=== PATIENT | female | born 1955 | race Caucasian/White ===

== ENCOUNTER 2019-08-01 08:29 | Inpatient (IN) ==
[2019-08-01] MEDS ORDERED: LACTATED RINGERS 1,000 ML IV ONE (08:44)
[2019-08-01] MEDS ORDERED: ONDANSETRON 4 MG/2 ML VIAL IV ONE (08:44)
[2019-08-01] MEDS ORDERED: ACETAMINOPHEN 325 MG TABLET PO ONE (09:00)
[2019-08-01] MEDS ORDERED: 0.9 % SODIUM CHLORIDE 1,000 ML IV ONE ×2 (09:27→10:48)
[2019-08-01 09:54] LABS: Basophils # (Auto) 0.03 K/mcL (0.00-0.30); Basophils % (Auto) 0.4 % (0.0-2.0); Eosinophils # (Auto) 0.01 K/mcL (0.00-0.70); Eosinophils % (Auto) 0.1 % (0.0-7.0); Granulocytes % (Auto) 86.4 % (38.0-78.0); Hemoglobin 10.8 g/dL (11.2-15.7); Lymphocytes # (Auto) 0.42 K/mcL (1.50-4.80); Lymphocytes % (Auto) 5.3 % (15.5-49.0); Mean Cell Volume 101.2 fL (80.0-100.0); Mean Corpuscular HGB Conc 32.7 g/dL (31.0-36.0); Monocytes # (Auto) 0.62 K/mcL (0.10-0.90); Monocytes % (Auto) 7.8 % (1.0-12.0); Platelet Count 317 K/mcL (140-440); RBC 3.26 M/mcL (3.59-5.38); Red Cell Distribution Width 12.6 % (11.5-14.5)
[2019-08-01 10:18] LABS: ALT/SGPT 12 U/l (0-40); AST/SGOT 21 U/l (0-37); Albumin 4.3 gm/dL (3.2-5.2); Albumin/Globulin Ratio 1.4 (1.0-2.3); Alkaline Phosphatase 67 U/L (39-117); Bilirubin,Total 0.3 mg/dL (0.0-1.0); Blood Urea Nitrogen 37 mg/dl (8-23); Calcium 9.7 mg/dl (8.6-10.4); Carbon Dioxide 18 mmol/L (22-30); Chloride 95 mmol/L (96-108); Glomerular Filtration Rate 16; Glucose 181 mg/dL (70-105)
--- NOTE | 2019-08-01 10:24 | Emergency Department Note ---
Nausea/Vomiting/Diarrhea HPI - General Chief complaint: Nausea/Vomiting/Diarrhea Stated complaint: "I think I have the flu" Time Seen by Provider: 08/01/19 08:43 Source: patient Mode of arrival: ambulatory Limitations: no limitations - History of Present Illness HPI Narrative: 63-year-old female with a 3-day history of nausea vomiting diarrhea. Concerned about coughing flu type symptoms. She is breathing okay. She has chronic kidney disease stage IV-sees nephrology here at [facility]. Not able to hold anything down except water. Febrile. - Related Data Home Medications Medication Instructions Recorded Confirmed aspirin 81 mg chewable tablet 81 mg PO QDAY 11/21/15 07/11/19 omeprazole 20 mg capsule,delayed 20 mg PO QDAY cap 11/21/15 07/11/19 release Previous Rx's Medication Instructions Recorded cholecalciferol (vitamin D3) 50 2,000 unit PO QDAY #90 cap 12/23/18 mcg (2,000 unit) capsule fenofibrate nanocrystallized 48 mg 48 mg PO QDAY #90 tab 06/21/19 tablet paroxetine HCl 40 mg tablet 40 mg PO QDAY #90 tab 06/21/19 lisinopril 5 mg tablet 5 mg PO QDAY #90 tab 07/11/19 sodium bicarbonate 650 mg tablet 650 mg PO BID #180 tab 07/11/19 Allergies Allergy/AdvReac Type Severity Reaction Status Date / Time hydrocodone Allergy Unknown Unknown Verified 07/11/19 14:46 oxycodone [Oxycodone] Allergy Unknown Unknown Verified 07/11/19 14:46 etodolac [From Lodine] AdvReac Severe kidney Verified 07/11/19 14:46 disease Review of Systems All systems ED: reviewed and negative except as stated. Past Medical History - Past Medical History Attestation: Yes: The following information was validated with the patient. PMF Narrative: Family History (Last Reviewed 06/21/19 @ 13:11 by SINDI Branch) Mother Heart disease Stroke Diabetes Kidney disease High blood pressure Father Heart disease High blood pressure Heart attack Grandmother Stroke Grandmother Stroke Grandfather Heart disease Sister Heart disease Diabetes Medical History (Last Reviewed 06/21/19 @ 13:11 by SINDI Branch) Chronic rhinitis (Chronic) Perceived hearing changes (Chronic) Constipation (Chronic) Fatigue (Chronic) Depression with anxiety (Chronic) Pre-diabetes (Chronic) Right knee pain (Chronic) Hypertension (Chronic) Postmenopausal atrophic vaginitis (Chronic) GERD (gastroesophageal reflux disease) (Chronic ~2000) Hyperlipidemia (Chronic) Low back pain syndrome (Chronic) Vitamin D deficiency (Chronic) Hemorrhoids (Chronic) Abnormal results of kidney function studies (Resolved) Bilateral flank pain (Resolved) Depression (Resolved) Diabetes mellitus (Resolved) Elevated BUN (Resolved) Elevated cholesterol (Resolved) Elevated serum creatinine (Resolved) Fatigue (Resolved) Hormone replacement therapy (HRT) (Resolved) Hyperkalemia, diminished renal excretion (Resolved) Osteoarthritis (Resolved) Past Surgical History (Last Reviewed 06/21/19 @ 13:11 by SINDI Branch) History of back surgery (Chronic) History of colonoscopy (Chronic 08/31/13) History of hysterectomy (Chronic) History of shoulder surgery (Chronic) Hx of removal of ovary (Chronic) No pertinent past surgical history (Inactive) Medical history: Reports: renal disease Psychiatric history: Reports: no psych history T[employer]IST history: Reports: non-contributory Surgical history ED: Reports: hysterectomy. Denies: cholecystectomy - Social History smoking status: Never smoker Physical Exam No acute distress resting able answer questions appropriately. Normocephalic atraumatic. Conjunctive are clear sclerae white nonicteric. No nasal discharge or congestion. Oropharynx is pink and moist. Neck is supple without lymphadenopathy or thyromegaly. Heart is regular rate and rhythm no murmur appreciated. Lungs are clear to auscultation bilaterally without wheezes rales rhonchi or respiratory distress. Abdomen is somewhat bloated but not tympanic. Mildly diffusely tender. No peritoneal signs or guarding. No pedal edema. Limitations: no limitations Course Vital Signs Temperature 101.5 F H 08/01/19 08:29 Pulse Rate 116 H 08/01/19 08:29 Respiratory Rate 20 08/01/19 08:29 Blood Pressure 124/62 08/01/19 08:29 Pulse Oximetry (%) 97 08/01/19 08:29 Temperature 100.8 F H 08/01/19 10:05 Pulse Rate 70 08/01/19 11:31 Respiratory Rate 18 08/01/19 10:00 Blood Pressure 115/58 08/01/19 11:31 Pulse Oximetry (%) 92 08/01/19 11:31 Nausea/Vomiting/Diarrhea - Lab Data Lab results reviewed: Yes I reviewed the patient's lab results. Result diagrams: 08/01/19 09:07 08/01/19 09:07 Lab Results 08/01/19 08/01/19 08/01/19 Range/Units 09:07 09:07 09:07 WBC 8.0 (4.50-11.00) K/mcL RBC 3.26 L (3.59-5.38) M/mcL Hgb 10.8 L (11.2-15.7) g/dL Hct 33.0 L (34.1-44.9) % MCV 101.2 H (80.0-100.0) fL MCH 33.1 (26.0-34.0) pg MCHC 32.7 (31.0-36.0) g/dL RDW 12.6 (11.5-14.5) % Plt Count 317 (140-440) K/mcL MPV 11.0 H (7.4-10.4) fL Gran % 86.4 H (38.0-78.0) % Lymph % (Auto) 5.3 L (15.5-49.0) % [place] % (Auto) 7.8 (1.0-12.0) % Eos % (Auto) 0.1 (0.0-7.0) % Baso % (Auto) 0.4 (0.0-2.0) % Gran # 6.89 (1.80-8.00) K/mcL Lymph # (Auto) 0.42 L (1.50-4.80) K/mcL [place]iken # (Auto) 0.62 (0.10-0.90) K/mcL Eos # (Auto) 0.01 (0.00-0.70) K/mcL Baso # (Auto) 0.03 (0.00-0.30) K/mcL VBG Lactic Acid 2.9 H (0.5-2.0) mmol/L Sodium 131 L (133-145) mmol/L Potassium 4.1 (3.3-5.1) mmol/L Chloride 95 L (96-108) mmol/L Carbon Dioxide 18 L (22-30) mmol/L Anion Gap 18.0 H (8-16) BUN 37 H (8-23) mg/dl Creatinine 3.0 H (0.6-1.1) mg/dl GFR Calculation 16 Glucose 181 H (70-105) mg/dL Calcium 9.7 (8.6-10.4) mg/dl Magnesium (1.6-2.5) mg/dL Total Bilirubin 0.3 (0.0-1.0) mg/dL AST 21 (0-37) U/l ALT 12 (0-40) U/l Alkaline Phosphatase 67 (39-117) U/L Total Protein 7.3 (5.9-8.4) gm/dL Albumin 4.3 (3.2-5.2) gm/dL Globulin 3.0 (2.2-3.7) gm/dL Albumin/Globulin Ratio 1.4 (1.0-2.3) /02/11 Range/Units 09:07 WBC (4.50-11.00) K/mcL RBC (3.59-5.38) M/mcL Hgb (11.2-15.7) g/dL Hct (34.1-44.9) % MCV (80.0-100.0) fL MCH (26.0-34.0) pg MCHC (31.0-36.0) g/dL RDW (11.5-14.5) % Plt Count (140-440) K/mcL MPV (7.4-10.4) fL Gran % (38.0-78.0) % Lymph % (Auto) (15.5-49.0) % [place]iken % (Auto) (1.0-12.0) % Eos % (Auto) (0.0-7.0) % Baso % (Auto) (0.0-2.0) % Gran # (1.80-8.00) K/mcL Lymph # (Auto) (1.50-4.80) K/mcL Aiken # (Auto) (0.10-0.90) K/mcL Eos # (Auto) (0.00-0.70) K/mcL Baso # (Auto) (0.00-0.30) K/mcL VBG Lactic Acid (0.5-2.0) mmol/L Sodium (133-145) mmol/L Potassium (3.3-5.1) mmol/L Chloride (96-108) mmol/L Carbon Dioxide (22-30) mmol/L Anion Gap (8-16) BUN (8-23) mg/dl Creatinine (0.6-1.1) mg/dl GFR Calculation Glucose (70-105) mg/dL Calcium (8.6-10.4) mg/dl Magnesium 1.8 (1.6-2.5) mg/dL Total Bilirubin (0.0-1.0) mg/dL AST (0-37) U/l ALT (0-40) U/l Alkaline Phosphatase (39-117) U/L Total Protein (5.9-8.4) gm/dL Albumin (3.2-5.2) gm/dL Globulin (2.2-3.7) gm/dL Albumin/Globulin Ratio (1.0-2.3) - Radiology Data Radiology results reviewed: Yes I reviewed the patient's radiology results. X-ray abdomen 2 views shows mild ileus and gastric decompression secondary to nausea and vomiting Disposition Pt seen by CASH CLERK/PA only: No Clinical Impression: Dehydration, Gastroenteritis, Ileus Acute on chronic kidney failure Qualifiers: Acute renal failure type: unspecified Chronic kidney disease stage: stage 4 (severe) Qualified Code(s): N17.9 - Acute kidney failure, unspecified Summary: Concern for gastroenteritis versus small bowel obstruction versus other intra- abdominal pathology. Initially got laboratory started IV fluids and Zofran. Creatinine has been slowly trending up and went from 2.5-3.0. Started second liter of fluid. Will check an abdominal x-ray series first Alfredo x-ray series shows mild ileus. Discussed results with the patient and with hospitalist, Dr. Chavez. Patient will be admitted for rehydration and further care Disposition: Xfer As Inpt ([facility]) Condition: Fair Referrals: Prudence Vilchis ARNP [Primary Care Provider] -
--- NOTE | 2019-08-01 11:38 | XRay Report ---
CLINICAL INFORMATION: nausea vomting diarrhea COMPARISON: 2017. FINDINGS: There are scattered air-fluid levels within decompressed stomach, small bowel and large bowel. No free air, soft tissue mass or organomegaly. No pathologic calcification. IMPRESSION: Decompressed GI tract with mild ileus Interpreted and Authenticated by: Frantz Delcid 08/01/19
[2019-08-01] MEDS ORDERED: ACETAMINOPHEN 325 MG TABLET PO PRN (12:42)
[2019-08-01] MEDS ORDERED: ONDANSETRON 4 MG/2 ML VIAL IV PRN ×2 (12:42→14:51)
[2019-08-01] MEDS ORDERED: traMADol 50 MG TABLET PO PRN (12:51)
[2019-08-01] MEDS ORDERED: 0.9 % SODIUM CHLORIDE 1,000 ML IV SCH (13:00)
--- NOTE | 2019-08-01 13:20 | Internal Med History&Physical ---
Medical - H&P: [facility] Patient information: Note initiated : 08/01/19 at 12:55 pm Service Date, if different from initiated Date: [] Patient: Caty King a 63 y/o F admitted on for "I think I have the flu". Chief Complaint: [Nausea vomiting diarrhea for 3 days] History of present illness: Ms. King is a 63 year old F with a history of chronic kidney disease and a high blood pressure who presented to the ER due to nausea vomiting and diarrhea for 3 days. As per patient patient started to have nausea, vomiting and diarrhea associated with mild intermittent epigastric abdominal pain 3 days ago. She has watery bowel movements x 4-5 a day. Abdominal pain is very mild something like stomach upset. Otherwise she denies headache, dizziness, chest pain, shortness of breath, fever, chills, or dysuria. In the ER, she was given 2 L IV fluid. When I saw this patient in the ER, other than the symptoms mentioned above, she was fine. Denied recent travel or sick contact. All systems: reviewed and no additional remarkable complaints except as stated (Nausea, vomiting, diarrhea and mild abdominal pain.) Medical - H&P: PMH Medical history: Chronic kidney disease and a high blood pressure Pertinent family history: Mother Heart disease Stroke Diabetes Kidney disease High blood pressure Father Heart disease High blood pressure Heart attack Grandmother Stroke Grandmother Stroke Grandfather Heart disease Sister Heart disease Diabetes Smoking status: Current some day smoker Time spent discussing smoking cessation with patient: 3 to 10 minutes Drug use: none Medical - H&P: Meds Home Medications Medication Instructions Recorded Confirmed Type aspirin 81 mg chewable tablet 81 mg PO QDAY 11/21/15 08/01/19 History omeprazole 20 mg capsule,delayed 20 mg PO QDAY cap 11/21/15 08/01/19 History release cholecalciferol (vitamin D3) 50 2,000 unit PO QDAY #90 cap 12/23/18 08/01/19 Rx mcg (2,000 unit) capsule fenofibrate nanocrystallized 48 mg 48 mg PO QDAY #90 tab 06/21/19 08/01/19 Rx tablet paroxetine HCl 40 mg tablet 40 mg PO QDAY #90 tab 06/21/19 08/01/19 Rx lisinopril 5 mg tablet 5 mg PO QDAY #90 tab 07/11/19 08/01/19 Rx sodium bicarbonate 650 mg tablet 650 mg PO BID #180 tab 07/11/19 08/01/19 Rx Allergies Allergy/AdvReac Type Severity Reaction Status Date / Time hydrocodone Allergy Unknown Unknown Verified 07/11/19 14:46 oxycodone [Oxycodone] Allergy Unknown Unknown Verified 07/11/19 14:46 etodolac [From Lodine] AdvReac Severe kidney Verified 07/11/19 14:46 disease Medical - H&P: Exam - Constitutional Vitals: Temp Pulse Resp BP Pulse Ox 100.8 F H 67 18 104/57 96 08/01/19 10:05 08/01/19 11:45 08/01/19 10:00 08/01/19 12:16 08/01/19 11:45 - Other Additional findings: General: No acute distress Head: Atraumatic, normocephalic Eyes/N/T: PERRL, EOMI Neck: neck supple, no thyroid megaly CV: RRR, No murmurs, Pulm: CTA, no crackles or wheezing Abd: soft, nontender, +BS x4 Ext: No edema, cyanosis or tenderness. Neuro: A+OX3, grossly no focal neurological deficits Skin: warm/dry Psych: normal mood Medical - H&P: Reslt - Labs CBC & Chem 7: 08/01/19 09:07 08/01/19 09:07 Labs: Short CBC 08/01/19 Range/Units 09:07 WBC 8.0 (4.50-11.00) K/mcL Hgb 10.8 L (11.2-15.7) g/dL Hct 33.0 L (34.1-44.9) % Plt Count 317 (140-440) K/mcL BMP 08/01/19 09:07 Sodium 131 L Potassium 4.1 Chloride 95 L Carbon Dioxide 18 L BUN 37 H Creatinine 3.0 H Glucose 181 H Calcium 9.7 Liver Function 08/01/19 Range/Units 09:07 Total Bilirubin 0.3 (0.0-1.0) mg/dL AST 21 (0-37) U/l ALT 12 (0-40) U/l Alkaline Phosphatase 67 (39-117) U/L Albumin 4.3 (3.2-5.2) gm/dL Medical - H&P: A/P - Narrative A/P Narrative: Assessment: 1. Acute gastroenteritis associated with nausea, vomiting, and diarrhea 2. Acute on chronic kidney failure stage 4 3. HTN 4. Hyponatremia 5. Ileus, mild 6. Current smoker Plan: 1. Abdominal x-ray showed decompressed GI tract with mild ileus 2 L of IV fluid was given in the ER IV fluid Repeat of electrolytes and renal function in the morning 2. Avoid nephrotoxic meds contrast Intake and output Repeat renal function in the morning 3. Lisinopril is on hold due to STEPHANY. Monitor blood pressure 4. Continue IV fluid. Repeat the sodium level in the morning 5. Smoke cessation counseled. Nicotine patch if necessary 6. DVT prophylaxis: Heparin CODE STATUS: Full
[2019-08-01] MEDS ORDERED: 0.9 % SODIUM CHLORIDE 10 ML SYRINGE IV SCH (14:00)
[2019-08-01] MEDS: 0.9 % SODIUM CHLORIDE 1,000 ML IV SCH ×2 (14:45→19:37)
[2019-08-01] MEDS: ACETAMINOPHEN 325 MG TABLET PO PRN ×2 (15:37→21:18)
[2019-08-01] MEDS ORDERED: HEPARIN 5,000 UNIT/ML VIAL SQ SCH (21:00)
[2019-08-01] MEDS ORDERED: SODIUM BICARBONATE 650 MG TABLET PO SCH (21:00)
[2019-08-01] MEDS: SODIUM BICARBONATE 650 MG TABLET PO SCH (21:12)
[2019-08-01] MEDS: HEPARIN 5,000 UNIT/ML VIAL SQ SCH (21:14)
[2019-08-01] MEDS: 0.9 % SODIUM CHLORIDE 10 ML SYRINGE IV SCH (21:14)
[2019-08-02] MEDS: 0.9 % SODIUM CHLORIDE 10 ML SYRINGE IV SCH ×3 (06:11→20:35)
[2019-08-02 06:22] LABS: Basophils # (Auto) 0.02 K/mcL (0.00-0.30); Basophils % (Auto) 0.2 % (0.0-2.0); Eosinophils # (Auto) 0 K/mcL (0.00-0.70); Eosinophils % (Auto) 0 % (0.0-7.0); Hematocrit 30.9 % (34.1-44.9); Hemoglobin 9.9 g/dL (11.2-15.7); Lymphocytes # (Auto) 0.68 K/mcL (1.50-4.80); Lymphocytes % (Auto) 7.5 % (15.5-49.0); Mean Platelet Volume 11.3 fL (7.4-10.4); Monocytes # (Auto) 0.66 K/mcL (0.10-0.90); Monocytes % (Auto) 7.3 % (1.0-12.0); Platelet Count 249 K/mcL (140-440); RBC 3.03 M/mcL (3.59-5.38); Red Cell Distribution Width 12.8 % (11.5-14.5); WBC 9.1 K/mcL (4.50-11.00)
[2019-08-02 06:51] LABS: ALT/SGPT 21 U/l (0-40); AST/SGOT 41 U/l (0-37); Albumin 3.6 gm/dL (3.2-5.2); Albumin/Globulin Ratio 1.3 (1.0-2.3); Alkaline Phosphatase 84 U/L (39-117); Bilirubin,Total 0.3 mg/dL (0.0-1.0); Blood Urea Nitrogen 31 mg/dl (8-23); Carbon Dioxide 22 mmol/L (22-30); Chloride 103 mmol/L (96-108); Globulin 2.7 gm/dL (2.2-3.7); Glomerular Filtration Rate 20; Glucose 116 mg/dL (70-105); Thyroid Stimulating Hormone 0.72 uIU/ml (0.27-5.01)
[2019-08-02] MEDS ORDERED: cefTRIAXone 1 GM VIAL IV SCH ×2 (07:00→10:30)
[2019-08-02] MEDS ORDERED: PANTOPRAZOLE 40 MG TABLET PO SCH (07:30)
[2019-08-02] MEDS: PANTOPRAZOLE 40 MG TABLET PO SCH (08:00)
[2019-08-02] MEDS ORDERED: PARoxetine 20 MG TABLET PO SCH (09:00)
[2019-08-02] MEDS ORDERED: VITAMIN D3 1,000 UNIT TABLET PO SCH (09:00)
[2019-08-02] MEDS ORDERED: ASPIRIN 81 MG TAB.CHEW PO SCH (09:00)
[2019-08-02] MEDS: SODIUM BICARBONATE 650 MG TABLET PO SCH ×2 (09:20→20:33)
[2019-08-02] MEDS: ASPIRIN 81 MG TAB.CHEW PO SCH (09:21)
[2019-08-02] MEDS: VITAMIN D3 1,000 UNIT TABLET PO SCH (09:33)
[2019-08-02] MEDS: PARoxetine 20 MG TABLET PO SCH (09:33)
[2019-08-02] MEDS: HEPARIN 5,000 UNIT/ML VIAL SQ SCH ×2 (09:34→20:35)
[2019-08-02] MEDS: cefTRIAXone 1 GM VIAL IV SCH ×2 (09:45→10:38)
--- NOTE | 2019-08-02 10:11 | Internal Med Progress Note ---
Medical - PN: Subj Patient information: Note initiated : 08/02/19 at 10:07 am Service Date, if different from initiated Date: [] Patient: Caty King 63 y/o F admitted on 08/01/19 for Nausea/Vomitting, Diarrhea. Chief Complaint: [] Interval history: 08/01 Pt feels better today. Afebrile Lactic acid went down to 0.8 Blood culture showed positive for gram-negative bacilli from 1 of 2 bottles Repeat blood culture. Ceftriaxone started - Constitutional Vitals: Vital Signs Temp Pulse Resp BP Pulse Ox 98.7 F 59 L 18 114/58 99 08/02/19 08:00 08/02/19 08:00 08/02/19 08:00 08/02/19 08:00 08/02/19 08:00 Period Temp Pulse Resp BP Sys/Field Pulse Ox Last 24 Hr 98.1 F-103.2 F 59-116 16-24 88-176/52-134 91-100 Intake and Output 08/01/19 08/02/19 08/02/19 21:59 05:59 13:59 Intake Total 1365 400 Output Total 200 250 200 Balance 1165 150 -200 Weight 62.596 kg Intake & Output: Intake & Output 08/01/19 08/02/19 08/02/19 21:59 05:59 13:59 Intake Total 1365 400 Output Total 200 250 200 Balance 1165 150 -200 Weight 62.596 kg Intake: IV 1365 Sodium Chloride 0.9% 1,000 ml @ 1365 75 mls/hr IV .[id number] [facility] Rx#: [id number] Oral 400 Output: Void Amount 100 250 200 Urine/Stool Mix 100 Other: Meal Breakfast Percent of Meal Consumed 75% Feeding Ability Independent Urine Appearance Clear Clear Urine Color Bright Yellow Light [place]ell Urine Odor Normal Normal Stool Size Small Smear Stool Color Brown Yellow Yellow Green Stool Consistency Loose Watery # Voids 1 # Bowel Movements 1 2 # of times incontinent of 1 1 Bowels - Additional findings Additional findings: General: No acute distress Head: Atraumatic, normocephalic Eyes/N/T: PERRL, EOMI Neck: neck supple, no thyroid megaly CV: RRR, No murmurs, Pulm: CTA, no crackles or wheezing Abd: soft, nontender, +BS x4 Ext: No edema, cyanosis or tenderness. Neuro: A+OX3, grossly no focal neurological deficits Skin: warm/dry Psych: normal mood Medical - PN: Obj Da - Labs CBC & Chem 7: 08/02/19 05:04 08/02/19 05:04 Labs: Abnormal Lab Results 08/02/19 08/02/19 08/01/19 05:04 05:04 09:07 RBC 3.03 L Hgb 9.9 L Hct 30.9 L MCV 102.0 H MPV 11.3 H Gran % 85.0 H Lymph % (Auto) 7.5 L Lymph # (Auto) 0.68 L VBG Lactic Acid 2.9 H Sodium Chloride Carbon Dioxide Anion Gap BUN 31 H Creatinine 2.5 H Glucose 116 H AST 41 H 08/01/19 08/01/19 09:07 09:07 RBC 3.26 L Hgb 10.8 L Hct 33.0 L MCV 101.2 H MPV 11.0 H Gran % 86.4 H Lymph % (Auto) 5.3 L Lymph # (Auto) 0.42 L VBG Lactic Acid Sodium 131 L Chloride 95 L Carbon Dioxide 18 L Anion Gap 18.0 H BUN 37 H Creatinine 3.0 H Glucose 181 H AST Meds: Medications Acetaminophen (Tylenol) 650 mg PO Q6HP PRN; Protocol PRN Reason: Per Pain Protocol/Fever > 101 Last Admin: 08/01/19 21:18 Dose: 650 mg Documented by: Aspirin (Aspirin) 81 mg PO QDAY [facility] Last Admin: 08/02/19 09:21 Dose: 81 mg Documented by: Ceftriaxone Sodium (Rocephin) 2 gm IV Q24H [facility]; Protocol Last Admin: 08/02/19 09:45 Dose: 2 gm Documented by: Heparin Sodium (Porcine) (Heparin) 5,000 unit SQ Q12 [facility] Last Admin: 08/02/19 09:34 Dose: 5,000 unit Documented by: Sodium Chloride (Sodium Chloride 0.9%) 1,000 mls @ 75 mls/hr IV .[id number] [facility] Last Admin: 08/01/19 19:37 Dose: 75 mls/hr Documented by: Ondansetron HCl (Zofran) 4 mg IV Q6HP PRN PRN Reason: Nausea And Vomiting Pantoprazole Sodium (Protonix) 40 mg PO QAMAC [facility] Last Admin: 08/02/19 08:00 Dose: 40 mg Documented by: Paroxetine HCl (Paxil) 40 mg PO QDAY [facility] Last Admin: 08/02/19 09:33 Dose: 40 mg Documented by: Sodium Bicarbonate (Sodium Bicarbonate) 650 mg PO BID [facility] Last Admin: 08/02/19 09:20 Dose: 650 mg Documented by: Sodium Chloride (Saline Flush) 10 ml IV Q8 [facility] Last Admin: 08/02/19 06:11 Dose: Not Given Documented by: Tramadol HCl (Ultram) 50 mg PO Q6HP PRN PRN Reason: Pain Vitamin D (Vitamin D3) 2,000 unit PO QDAY [facility] Last Admin: 08/02/19 09:33 Dose: 2,000 unit Documented by: Medical - PN: A/P - Time Spent With Patient Total time spent is greater than 50% in coordination of care (as documented) at patient's floor/unit and/or counseling patient: - Narrative A/P Narrative: Assessment: 1. Acute gastroenteritis associated with nausea, vomiting, and diarrhea 2. Acute on chronic kidney failure stage 4 3. HTN 4. Hyponatremia 5. Ileus, mild 6. Current smoker 7. Bacteremia, GNB Plan: 1. Abdominal x-ray showed decompressed GI tract with mild ileus 2 L of IV fluid was given in the ER IV fluid Repeat of electrolytes and renal function in the morning 2. Avoid nephrotoxic meds contrast Intake and output Creatinine trending down Repeat renal function in the morning 3. Lisinopril is on hold due to STEPHANY. Monitor blood pressure 4. Sodium 137. Continue IV fluid. Repeat the sodium level in the morning 5. Smoke cessation counseled. Nicotine patch if necessary 6. Blood culture showed positive for gram-negative bacilli from 1 of 2 bottles Repeat blood culture. Discussed with ID Dr. Mullins, ceftriaxone 2 g daily was started. CT abd with oral contrast to r/o intraabd pathology such as diverticulitis. 7. DVT prophylaxis: Heparin CODE STATUS: Full Disposition: Patient was admitted as observation. I will her inpatient since blood culture positive. Medical - PN: Qual - VTE Deep Vein Thrombosis/Pulmonary Embolism Present on Admission: No
[2019-08-02] MEDS: 0.9 % SODIUM CHLORIDE 1,000 ML IV SCH ×2 (10:27→23:52)
--- NOTE | 2019-08-02 13:04 | Internal Med Progress Note ---
Medical - PN: Subj Patient information: Note initiated : 08/02/19 at 1:00 pm Service Date, if different from initiated Date: [] Patient: Caty King 63 y/o F admitted on 08/01/19 for Nausea/Vomitting, Diarrhea. Chief Complaint: [] Interval history: Ms. King is a 63 year old F with a history of chronic kidney disease and a high blood pressure who presented to the ER due to nausea vomiting and diarrhea for 3 days. As per patient patient started to have nausea, vomiting and diarrhea associated with mild intermittent epigastric abdominal pain 3 days ago. She has watery bowel movements x 4-5 a day. Abdominal pain is very mild something like stomach upset. Otherwise she denies headache, dizziness, chest pain, shortness of breath, fever, chills, or dysuria. In the ER, she was given 2 L IV fluid. When I saw this patient in the ER, other than the symptoms mentioned above, she was fine. Denied recent travel or sick contact. 08/01 Pt feels better today. Afebrile Lactic acid went down to 0.8 Blood culture showed positive for gram-negative bacilli from 1 of 2 bottles Repeat blood culture. Ceftriaxone started - Constitutional Vitals: Vital Signs Temp Pulse Resp BP Pulse Ox 98.7 F 59 L 18 114/58 99 08/02/19 08:00 08/02/19 08:00 08/02/19 08:00 08/02/19 08:00 08/02/19 08:00 Period Temp Pulse Resp BP Sys/Field Pulse Ox Last 24 Hr 98.1 F-103.2 F 59-116 16-24 98-176/54-134 91-100 Intake and Output 08/01/19 08/02/19 08/02/19 21:59 05:59 13:59 Intake Total 3242 125 0126 Output Total 200 250 200 Balance 1165 150 800 Weight 62.596 kg Intake & Output: Intake & Output 08/01/19 08/02/19 08/02/19 21:59 05:59 13:59 Intake Total 4401 870 1176 Output Total 200 250 200 Balance 1165 150 800 Weight 62.596 kg Intake: IV 1365 1000 Sodium Chloride 0.9% 1,000 ml @ 1365 1000 75 mls/hr IV .[id number] [facility] Rx#: [id number] Oral 400 Output: Void Amount 100 250 200 Urine/Stool Mix 100 Other: Meal Breakfast Percent of Meal Consumed 75% Feeding Ability Independent Urine Appearance Clear Clear Urine Color Bright Yellow Light [place]ell Urine Odor Normal Normal Stool Size Small Smear Stool Color Brown Yellow Yellow Green Stool Consistency Loose Watery # Voids 1 # Bowel Movements 1 2 # of times incontinent of 1 1 Bowels Exam: General: Alert, Awake, No acute Distress Eyes/N/T: EOMI, Head/Neck: neck supple, CV: RRR, No murmurs, normal s1/s2 Pulm: Clear b/l, no wheezing/rhonchi/rales Abd: soft, nontender, +BS x4 Ext: no clubbing/cyanosis/edema Neuro: Alert, no focal deficits, moves all extremities, Skin: warm/dry Medical - PN: Obj Da - Labs CBC & Chem 7: 08/02/19 05:04 08/02/19 05:04 Labs: Abnormal Lab Results 08/02/19 08/02/19 08/01/19 05:04 05:04 09:07 RBC 3.03 L Hgb 9.9 L Hct 30.9 L MCV 102.0 H MPV 11.3 H Gran % 85.0 H Lymph % (Auto) 7.5 L Lymph # (Auto) 0.68 L VBG Lactic Acid 2.9 H Sodium Chloride Carbon Dioxide Anion Gap BUN 31 H Creatinine 2.5 H Glucose 116 H AST 41 H 08/01/19 08/01/19 09:07 09:07 RBC 3.26 L Hgb 10.8 L Hct 33.0 L MCV 101.2 H MPV 11.0 H Gran % 86.4 H Lymph % (Auto) 5.3 L Lymph # (Auto) 0.42 L VBG Lactic Acid Sodium 131 L Chloride 95 L Carbon Dioxide 18 L Anion Gap 18.0 H BUN 37 H Creatinine 3.0 H Glucose 181 H AST Meds: Medications Acetaminophen (Tylenol) 650 mg PO Q6HP PRN; Protocol PRN Reason: Per Pain Protocol/Fever > 101 Last Admin: 08/01/19 21:18 Dose: 650 mg Documented by: Aspirin (Aspirin) 81 mg PO QDAY [facility] Last Admin: 08/02/19 09:21 Dose: 81 mg Documented by: Heparin Sodium (Porcine) (Heparin) 5,000 unit SQ Q12 [facility] Last Admin: 08/02/19 09:34 Dose: 5,000 unit Documented by: Sodium Chloride (Sodium Chloride 0.9%) 1,000 mls @ 75 mls/hr IV .[id number] [facility] Last Admin: 08/02/19 10:27 Dose: 75 mls/hr Documented by: Ceftriaxone Sodium 2 gm/ (Dextrose) 50 mls @ 100 mls/hr IV Q24H [facility] Ondansetron HCl (Zofran) 4 mg IV Q6HP PRN PRN Reason: Nausea And Vomiting Pantoprazole Sodium (Protonix) 40 mg PO QAMAC [facility] Last Admin: 08/02/19 08:00 Dose: 40 mg Documented by: Paroxetine HCl (Paxil) 40 mg PO QDAY [facility] Last Admin: 08/02/19 09:33 Dose: 40 mg Documented by: Sodium Bicarbonate (Sodium Bicarbonate) 650 mg PO BID [facility] Last Admin: 08/02/19 09:20 Dose: 650 mg Documented by: Sodium Chloride (Saline Flush) 10 ml IV Q8 [facility] Last Admin: 08/02/19 06:11 Dose: Not Given Documented by: Tramadol HCl (Ultram) 50 mg PO Q6HP PRN PRN Reason: Pain Vitamin D (Vitamin D3) 2,000 unit PO QDAY [facility] Last Admin: 08/02/19 09:33 Dose: 2,000 unit Documented by: Medical - PN: A/P - Time Spent With Patient Total time spent is greater than 50% in coordination of care (as documented) at patient's floor/unit and/or counseling patient: - Narrative A/P Narrative: Assessment: * Acute gastroenteritis associated with nausea, vomiting, and diarrhea * Bacteremia, GNB * Acute on chronic kidney failure stage 4: -improving * HTN: * Hyponatremia: resolved * Ileus, mild: * Current smoker: Plan: - Abdominal x-ray showed decompressed GI tract with mild ileus -IVF's today - Avoid nephrotoxic meds contrast -Lisinopril is on hold due to STEPHANY. Monitor blood pressure - Smoke cessation counseled. Nicotine patch if necessary - Repeat blood culture. - Dr. Mullins following, ceftriaxone 2 g daily was started. CT abd with oral contrast to r/o intraabd pathology such as diverticulitis. -DVT prophylaxis: Heparin Medical - PN: Qual - VTE Deep Vein Thrombosis/Pulmonary Embolism Present on Admission: No
[2019-08-02] MEDS: ACETAMINOPHEN 325 MG TABLET PO PRN ×2 (14:31→22:14)
[2019-08-02] MEDS: traMADol 50 MG TABLET PO PRN (23:55)
[2019-08-03] MEDS: 0.9 % SODIUM CHLORIDE 10 ML SYRINGE IV SCH ×3 (06:16→23:54)
[2019-08-03] MEDS: PANTOPRAZOLE 40 MG TABLET PO SCH (07:22)
[2019-08-03] MEDS: traMADol 50 MG TABLET PO PRN (07:25)
--- NOTE | 2019-08-03 07:31 | Internal Med Progress Note ---
Medical - PN: Subj Patient information: Note initiated : 08/03/19 at 7:26 am Service Date, if different from initiated Date: [] Patient: Caty King 63 y/o F admitted on 08/02/19 for Nausea/Vomitting, Diarrhea. Chief Complaint: [] Interval history: Ms. King is a 63 year old F with a history of chronic kidney disease and a high blood pressure who presented to the ER due to nausea vomiting and diarrhea for 3 days. As per patient patient started to have nausea, vomiting and diarrhea associated with mild intermittent epigastric abdominal pain 3 days ago. She has watery bowel movements x 4-5 a day. Abdominal pain is very mild something like stomach upset. Otherwise she denies headache, dizziness, chest pain, shortness of breath, fever, chills, or dysuria. In the ER, she was given 2 L IV fluid. When I saw this patient in the ER, other than the symptoms mentioned above, she was fine. Denied recent travel or sick contact. 08/01 Pt feels better today. Afebrile Lactic acid went down to 0.8 Blood culture showed positive for gram-negative bacilli from 1 of 2 bottles Repeat blood culture. Ceftriaxone started 08/02 Slept better. Mild headache. No overnight events or new complaints. Feeling better overall. Review of Systems: denies fever/chills/nausea/vomiting/chest or abdominal pain/cough/dyspn ea/diarrhea. Otherwise see above. - Constitutional Vitals: Vital Signs Temp Pulse Resp BP Pulse Ox 99.3 F H 82 18 129/75 98 08/03/19 03:45 08/03/19 03:45 08/03/19 03:45 08/03/19 03:45 08/03/19 03:45 Period Temp Pulse Resp BP Sys/Field Pulse Ox Last 24 Hr 98.7 F-99.3 F 59-82 18-62 105-129/56-75 96-100 Intake and Output 08/02/19 08/03/19 08/03/19 21:59 05:59 13:59 Intake Total 1100 1440 Output Total 250 400 Balance 850 1040 Weight 62.959 kg Intake & Output: Intake & Output 08/02/19 08/03/19 08/03/19 21:59 05:59 13:59 Intake Total 1100 1440 Output Total 250 400 Balance 850 1040 Weight 62.959 kg Intake: IV 1000 Sodium Chloride 0.9% 1,000 ml @ 1000 75 mls/hr IV .[id number] [facility] Rx#: [id number] Oral 1100 440 Output: Void Amount 250 400 Other: Meal Lunch Percent of Meal Consumed 50% Feeding Ability Independent Urine Appearance Clear Urine Color Light Chantell Bright Yellow Urine Odor Normal Normal Exam: General: Alert, Awake, No acute Distress Eyes/N/T: EOMI, Head/Neck: neck supple, CV: RRR, No murmurs, normal s1/s2 Pulm: Clear b/l, no wheezing/rhonchi/rales Abd: soft, nontender, +BS x4 Ext: no clubbing/cyanosis/edema Neuro: Alert, no focal deficits, moves all extremities, Skin: warm/dry Medical - PN: Obj Da - Labs CBC & Chem 7: 08/02/19 05:04 08/02/19 05:04 Labs: Abnormal Lab Results 08/02/19 08/02/19 08/01/19 05:04 05:04 09:07 RBC 3.03 L Hgb 9.9 L Hct 30.9 L MCV 102.0 H MPV 11.3 H Gran % 85.0 H Lymph % (Auto) 7.5 L Lymph # (Auto) 0.68 L VBG Lactic Acid 2.9 H Sodium Chloride Carbon Dioxide Anion Gap BUN 31 H Creatinine 2.5 H Glucose 116 H AST 41 H 08/01/19 08/01/19 09:07 09:07 RBC 3.26 L Hgb 10.8 L Hct 33.0 L MCV 101.2 H MPV 11.0 H Gran % 86.4 H Lymph % (Auto) 5.3 L Lymph # (Auto) 0.42 L VBG Lactic Acid Sodium 131 L Chloride 95 L Carbon Dioxide 18 L Anion Gap 18.0 H BUN 37 H Creatinine 3.0 H Glucose 181 H AST Meds: Medications Acetaminophen (Tylenol) 650 mg PO Q6HP PRN; Protocol PRN Reason: Per Pain Protocol/Fever > 101 Last Admin: 08/02/19 22:14 Dose: 650 mg Documented by: Aspirin (Aspirin) 81 mg PO QDAY [facility] Last Admin: 08/02/19 09:21 Dose: 81 mg Documented by: Heparin Sodium (Porcine) (Heparin) 5,000 unit SQ Q12 [facility] Last Admin: 08/02/19 20:35 Dose: 5,000 unit Documented by: Ceftriaxone Sodium 2 gm/ (Dextrose) 50 mls @ 100 mls/hr IV Q24H [facility] Ondansetron HCl (Zofran) 4 mg IV Q6HP PRN PRN Reason: Nausea And Vomiting Pantoprazole Sodium (Protonix) 40 mg PO QAMAC [facility] Last Admin: 08/03/19 07:22 Dose: 40 mg Documented by: Paroxetine HCl (Paxil) 40 mg PO QDAY [facility] Last Admin: 08/02/19 09:33 Dose: 40 mg Documented by: Sodium Bicarbonate (Sodium Bicarbonate) 650 mg PO BID [facility] Last Admin: 08/02/19 20:33 Dose: 650 mg Documented by: Sodium Chloride (Saline Flush) 10 ml IV Q8 [facility] Last Admin: 08/03/19 06:16 Dose: Not Given Documented by: Tramadol HCl (Ultram) 50 mg PO Q6HP PRN PRN Reason: Pain Last Admin: 08/03/19 07:25 Dose: 50 mg Documented by: Vitamin D (Vitamin D3) 2,000 unit PO QDAY [facility] Last Admin: 08/02/19 09:33 Dose: 2,000 unit Documented by: Medical - PN: A/P - Time Spent With Patient Total time spent is greater than 50% in coordination of care (as documented) at patient's floor/unit and/or counseling patient: - Narrative A/P Narrative: Assessment: *Acute gastroenteritis associated with nausea/vomiting/diarrhea *Bacteremia, GNB *Sepsis: -now afebrile, * Acute on chronic kidney failure stage 4: -improving *HTN: *Hyponatremia: resolved *Ileus, mild: *Tobacco abuse: Plan: -cont zosyn -Repeat blood culture pending -IVF's stopped - Avoid nephrotoxic meds contrast -Lisinopril is on hold due to STEPHANY. BP ok w/o it so far -Smoke cessation counseled. Nicotine patch if necessary -Dr. Mullins following,CT abd with oral contrast to r/o intraabd pathology such as diverticulitis. -DVT prophylaxis: Heparin Medical - PN: Qual - VTE Deep Vein Thrombosis/Pulmonary Embolism Present on Admission: No
[2019-08-03 08:17] LABS: Calcium 9.2 mg/dl (8.6-10.4); Carbon Dioxide 22 mmol/L (22-30); Chloride 108 mmol/L (96-108); Glomerular Filtration Rate 26; Glucose 101 mg/dL (70-105)
[2019-08-03 08:28] LABS: Blood Urea Nitrogen 24 mg/dl (8-23)
[2019-08-03] MEDS ORDERED: cefTRIAXone 2 GM in DEXTROSE 5% IN WATER 50 ML IV SCH (09:00)
[2019-08-03] MEDS: PIPERACILLIN SODIUM/TAZOBACTAM 2.25 GM in DEXTROSE 5% IN WATER 50 ML IV SCH ×4 (09:07→23:52)
[2019-08-03] MEDS: 0.9 % SODIUM CHLORIDE 1,000 ML IV SCH ×2 (09:08→09:09)
[2019-08-03] MEDS: HEPARIN 5,000 UNIT/ML VIAL SQ SCH ×2 (09:08→20:50)
[2019-08-03] MEDS: PARoxetine 20 MG TABLET PO SCH (09:09)
[2019-08-03] MEDS: ASPIRIN 81 MG TAB.CHEW PO SCH (09:10)
[2019-08-03] MEDS: VITAMIN D3 1,000 UNIT TABLET PO SCH (09:10)
[2019-08-03] MEDS: SODIUM BICARBONATE 650 MG TABLET PO SCH ×2 (09:10→20:49)
[2019-08-03] MEDS ORDERED: LABETALOL 5 MG/ML ML IV PRN (12:24)
--- NOTE | 2019-08-03 12:25 | Discharge Summary ---
Medical - DS: Prov Patient information: Note initiated : 08/03/19 at 12:19 pm Service Date, if different from initiated Date: [] Patient: Caty King 63 y/o F admitted on 08/02/19 for Nausea/Vomitting, Diarrhea. Chief Complaint: [] Date of admission: 08/02/19 12:23 Discharge date: 08/04/19 Primary care physician: Prudence Vilchis Consults: 08/01/19 11:43 Consult to Physician [CONS] Stat Comment: Consulting Provider: Panfilo Chavez Reason For Exam: Physician to Consult 08/03/19 07:29 Consult to Physician [CONS] Routine Comment: bacterem Consulting Provider: Sherwin Mullins Reason For Exam: Physician to Consult Medical - DS: Meds - Discharge Medications Prescriptions: Ciprofloxacin HCl [Cipro] 500 mg PO Q18H #4 tab Active and Home Medications: Home Medications aspirin 81 mg chewable tablet 81 mg PO QDAY 11/21/15 [History Confirmed 08/01/19 Last Taken 07/31/19] omeprazole 20 mg capsule,delayed release 20 mg PO QAM cap 11/21/15 [History Confirmed 08/01/19 Last Taken 07/31/19] cholecalciferol (vitamin D3) 50 mcg (2,000 unit) capsule 2,000 unit PO QDAY #90 cap 12/23/18 [Rx Confirmed 08/01/19 Last Taken 07/31/19] fenofibrate nanocrystallized 48 mg tablet 48 mg PO QDAY #90 tab 06/21/19 [Rx Confirmed 08/01/19 Last Taken 07/31/19] paroxetine HCl 40 mg tablet 40 mg PO QDAY #90 tab 06/21/19 [Rx Confirmed 08/01/19 Last Taken 07/31/19] lisinopril 5 mg tablet 5 mg PO QDAY #90 tab 07/11/19 [Rx Confirmed 08/01/19 Last Taken 07/31/19] sodium bicarbonate 650 mg tablet 650 mg PO BID #180 tab 07/11/19 [Rx Confirmed 08/01/19 Last Taken 07/31/19] Medical - DS: Hosp Hospital Course: Ms. King is a 63 year old F with a history of chronic kidney disease and a high blood pressure who presented to the ER due to nausea vomiting and diarrhea for 3 days. As per patient patient started to have nausea, vomiting and diarrhea associated with mild intermittent epigastric abdominal pain 3 days ago. She has watery bowel movements x 4-5 a day. Abdominal pain is very mild something like stomach upset. Otherwise she denies headache, dizziness, chest pain, shortness of breath, fever, chills, or dysuria. In the ER, she was given 2 L IV fluid. When I saw this patient in the ER, other than the symptoms mentioned above, she was fine. Denied recent travel or sick contact. 08/01 Pt feels better today. Afebrile Lactic acid went down to 0.8 Blood culture showed positive for gram-negative bacilli from 1 of 2 bottles Repeat blood culture. Ceftriaxone started 08/02 Slept better. Mild headache. No overnight events or new complaints. Feeling better overall. 08/03 Well. No overnight events or new complaints. Able for discharge Assessment: *Acute gastroenteritis associated with nausea/vomiting/diarrhea -c. diff neg *Bacteremia (e. coli): 1 of 4 bottles, pansensitive *Sepsis: -now afebrile, * Acute on chronic kidney failure stage 4: -improving *HTN: *Hyponatremia: resolved *Ileus, mild: *Tobacco abuse: Discharge diagnosis: Gastroenteritis E. coli bacteremia acute on chronic kidney disease sepsis Secondary discharge diagnosis: Hypertension tobacco abuse - Time Spent with Patient Total time spent providing and/or coordinating discharge services: Greater than 30 minutes Medical - DS: Exam - Constitutional Vitals: Vital Signs Temp Pulse Resp BP Pulse Ox 08/03/19 08:00 99.8 F H 75 18 159/78 96 08/03/19 03:45 99.3 F H 82 18 129/75 98 08/02/19 22:59 99.2 F H 82 20 129/59 96 08/02/19 18:53 98.7 F 79 20 124/61 99 08/02/19 16:00 98.8 F 62 62 H 114/61 97 Intake and Output 08/02/19 08/03/19 08/03/19 21:59 05:59 13:59 Intake Total 1100 1440 1225 Output Total 250 400 200 Balance 850 1040 1025 Intake: IV 1000 745 Sodium Chloride 0.9% 1,000 ml @ 1000 695 75 mls/hr IV .[id number] [facility] Rx#: [id number] Zosyn 2.25 gm In Dextrose 5% in 50 Water 50 ml @ 100 mls/hr IV Q6H [facility] Rx#:[id number] Oral 1100 440 480 Output: Void Amount 250 400 Stool 200 Other: Meal Lunch Percent of Meal Consumed 50% Feeding Ability Independent Urine Appearance Clear Urine Color Light Chantell Bright Yellow Urine Odor Normal Normal Stool Size Moderate Stool Color Yellow Stool Consistency Liquid # Voids 1 # Bowel Movements 1 Weight 62.959 kg Medical - DS: Data Labs on day of discharge: Labs from last 24 hours 08/03/19 08/02/19 06:00 11:57 VBG Lactic Acid 1.2 Sodium 142 Potassium 3.9 Chloride 108 Carbon Dioxide 22 Anion Gap 12.0 BUN 24 H Creatinine 2.0 H GFR Calculation 26 Glucose 101 Calcium 9.2 Preliminary micro results at discharge 08/02/19 09:02 Blood Culture - Preliminary Blood 08/02/19 09:08 Blood Culture - Preliminary Blood 08/01/19 16:16 Blood Culture - Preliminary Blood 08/01/19 16:20 Blood Culture - Preliminary Blood Gram negative bacillus Medical - DS: A/P - Patient/Caregiver Discharge Instructions Activity: increase activity as tolerated Diet: Regular Diet Prescriptions: Ciprofloxacin HCl [Cipro] 500 mg PO Q18H #4 tab - Follow up Plan Follow up with: Prudence Vilchis ARNP [Primary Care Provider] - Disposition: Home, Self-Care Prognosis: Fair Rehab Potential: Fair Overall status at discharge: patient is progressing back to baseline Medical - DS: Qual - VTE Deep Vein Thrombosis/Pulmonary Embolism Present on Admission: No
[2019-08-03] MEDS: LOPERAMIDE 2 MG CAPSULE PO PRN ×2 (12:40→18:37)
--- NOTE | 2019-08-03 19:34 | Cat Scan Report ---
CLINICAL INFORMATION: Sepsis COMPARISON: None. TECHNIQUE: 0.625 mm helical slices were obtained from the mid heart through the subtrochanteric regions. Following reconstruction, 2.5 mm sagittal, coronal and axial reformatted images were processed and reviewed at bone and soft tissue windows.The exam was performed using radiation dose optimization techniques including, but not limited to, automated exposure control, adjustment of the mA and/or kV according to patient size and use of iterative reconstruction technique. FINDINGS: Lung bases shows scattered scarring and/or atelectasis, but no milind infiltrate. No effusions. The visualized heart is grossly normal Abdominal images show the noncontrast liver is unremarkable. Gallbladder is normal CBD is 5 mm. The noncontrast right kidney, both adrenal glands, spleen, pancreas and aorta are normal in size, configuration and attenuation without focal lesion. The left knee shows mild asymmetric enlargement with inhomogeneous parenchymal attenuation and inflammatory stranding in the perinephric space and mild thickening of Gerotas' fascia. Findings are reported above left pyelonephritis. No evidence of hydronephrosis. Pelvic images show hysterectomy and oophorectomy changes. The urinary bladder is normal. There are multiple sigmoid diverticuli, but no evidence of diverticulitis. The remaining large bowel is unremarkable. Small bowel and stomach are normal. Bone windows show surgical changes lumbar spine. No focal osseous lesions IMPRESSION: 1. Mildly enlarged, inhomogeneous left kidney with perinephric stranding suggesting left pyelonephritis. Please correlate with urinalysis. Suggest renal ultrasound to evaluate for abscess or, less likely, infiltrating mass. 2. Sigmoid diverticulosis, but no CT evidence for diverticulitis. Interpreted and Authenticated by: Frantz Delcid 08/03/19
[2019-08-04] MEDS: PIPERACILLIN SODIUM/TAZOBACTAM 2.25 GM in DEXTROSE 5% IN WATER 50 ML IV SCH (05:59)
[2019-08-04] MEDS: 0.9 % SODIUM CHLORIDE 10 ML SYRINGE IV SCH (06:00)
[2019-08-04] MEDS: PANTOPRAZOLE 40 MG TABLET PO SCH (07:21)
[2019-08-04] MEDS: HEPARIN 5,000 UNIT/ML VIAL SQ SCH (09:15)
[2019-08-04] MEDS: PARoxetine 20 MG TABLET PO SCH (09:16)
[2019-08-04] MEDS: VITAMIN D3 1,000 UNIT TABLET PO SCH (09:16)
[2019-08-04] MEDS: ASPIRIN 81 MG TAB.CHEW PO SCH (09:16)
[2019-08-04] MEDS: SODIUM BICARBONATE 650 MG TABLET PO SCH (09:16)
[2019-08-04] MEDS: LOPERAMIDE 2 MG CAPSULE PO PRN (09:21)
== END 2019-08-04 10:30 | disposition home or self-care (01) | DRG 872 ==
LOC: MEDSUR 08:29 → ED 08:29 → MEDSUR 14:48
PROVIDERS: ADMIT Internal Medicine; ATTEND Internal Medicine